=== PATIENT | male | born 1985 | race Caucasian/White ===

== ENCOUNTER 2018-05-04 07:26 | Emergency (ER) | payer OTHER, SELFPAY ==
[2018-05-04 07:28] VITALS: BP 125/82; PULSE 106; RESP 17; TEMP 36.5; O2SAT 98; BMI 27.6
[2018-05-04 08:03] VITALS: O2SAT 99
--- NOTE | 2018-05-04 08:37 | RAD_ITS ---
STUDY: X-RAY CHEST REASON FOR EXAM: Male, 32 years old. Cough and shortness of breath. TECHNIQUE: PA and lateral views of the chest. COMPARISON: None. FINDINGS: Mild degree of increased interstitial markings in the right middle lobe and lingular segment of the left upper lobe. This may represent a viral type of pneumonia. Radiographic follow-up is recommended. There is no demonstrated pleural abnormality. Normal size heart. Normal mediastinum and dao. Normal visualized pulmonary arteries. Normal visualized aortic arch and descending thoracic aorta. Normal visualized thoracic spine. Normal visualized ribs, clavicles, and shoulders. There is no demonstrated abnormality of the visualized soft tissue structures of the upper abdomen. RAD/Chest PA and Lateral IMPRESSION: Mild degree of increased interstitial markings in the right middle lobe and lingular segment of the left upper lobe. Radiographic follow-up is recommended. Electronically Signed: Kemal Hopkins MD at 9:22 EDT Tel [phone], Service support ,
--- NOTE | 2018-05-04 08:39 | ED.VIS.GEN ---
History of Present Illness Chief Complaint: Cold Sx Informant: Patient Onset: Days - 3- Context: Gradual Onset Timing: Continuous Quality: [employer] cough, bronchospasm Location: chest Current Severity: Severe Maximum Severity: Severe Worsened by: coughing. lying down supine. Relieved by: nothing but hasn't tried any medications Associated Symptoms: sob when coughing. sweats at night sometimes. sore throat. hoarseness. Narrative: Few days of cold symptoms. Cough is nonproductive. He went to urgent care yesterday and had a negative strep test, they ordered outpatient multiple labs including Monospot, and a chest x-ray. He has not gotten any of that yet. Past Medical History - Allergies and Home Meds Allergies/Adverse Reactions: Allergies amoxicillin Allergy (Verified 05/04/18 07:28) Unknown Primary Care Physician: Care Physician,No Primary [Primary Care Provider] - Lives: Spouse/ Significant Other Smoking Status: Never smoker Review of Systems All systems negative except as indicated General: Reports: Malaise, Sweats. Denies: Chills, Fever Eyes: Denies: Visual changes - bilaterally ENT: Denies: Bilateral ear pain Cardiovascular: Reports: Chest pain - sore from coughing Respiratory: Reports: Dyspnea, Cough. Denies: Sputum, Orthopnea Gastrointestinal: Denies: Abdominal pain, Nausea, Vomiting, Diarrhea Musculoskeletal: Denies: Myalgias, Neck pain, Back pain Skin: Denies: Rash Neurological: Reports: Headache - w/ coughing Physical Exam Vital Signs/Narrative: Vital Signs Temp Pulse Resp BP Pulse Ox 05/04/18 07:28 97.7 F L 106 H 17 125/82 H 98 Inital Vital Signs reviewed: Yes General: Well nourished, Well developed Head: Normocephalic, Atraumatic Eyes: Perrl, EOMI ENT: Moist mucous membranes, No rhinorrhea, TM's clear, - - Posterior oropharynx clear. Hoarse of voice. No stridor.. Negative for: Nasal congestion, Sinus tenderness Neck: Supple, Nontender, No lymphadenopathy, No JVD Cardiovascular: Regular rate, Regular rhythm, No murmurs, Tachycardia - Mild Respiratory: No distress, CTA bilaterally, Chest tenderness - Mild diffusely Abdomen: Soft, Nontender, Nondistended, Normal bowel sounds Skin: Normal color, No rash Neurological: Alert, Oriented x3, Cranial nerves II-XII grossly intact, Normal Strength, Normal Sensation Psychological: Normal affect Diagnostic/Tx/Re-eval Clinical Impression(s) from Imaging Studies Chest X-Ray 05/04/18 08:37 IMPRESSION: Mild degree of increased interstitial markings in the right middle lobe and lingular segment of the left upper lobe. Radiographic follow-up is recommended. Electronically Signed: Kemal Hopkins MD at 9:22 EDT Tel [phone], Service support , - Medical Decision Making Pt is tachycardic, so although lungs are clear, CXR performed. X-ray shows increased interstitial markings, it is possible this is a mycoplasma infection. Will place him on broad-spectrum antibiotics and something for his cough. Advised close outpatient follow-up if not improving. He is comfortable with this plan. We also discussed the outpatient blood work that was ordered. It is up to him if he wants to continue to get it, but I do not think any of it including a Monospot is indicated or necessary at this time. ED Disposition - Plan for ED Patient: Disposition: Home or Assisted Living Chief Complaint: Cold Sx Diagnosis: Atypical pneumonia Instructions: Walking Pneumonia Prescriptions: Guaifenesin/Codeine [Robitussin AC] 5 - 10 ml PO Q6H PRN PRN 3 Days #4 oz PRN Reason: Cough Azithromycin [Zithromax Z-Sunil] 250 mg PO UD #1 box Referrals: Doctor,Your [STAFF PHYSICIAN] - Haley Medina [NON-STAFF] - 1 Week if not improving (If you do not have a primary care doctor)
[2018-05-04] MEDS: Albuterol 2.5 MG/3 ML VIAL.NEB. INHALATION (08:54)
[2018-05-04 08:56] VITALS: PULSE 109; RESP 24; O2SAT 97
[2018-05-04] MEDS: guaiFENesin Dm 10 ML UDC PO (09:04)
[2018-05-04 10:05] VITALS: BP 104/67; PULSE 81; RESP 16; O2SAT 97
--- NOTE | 2018-05-04 17:24 | ED.DCSUM_ITS ---
History of Present Illness Chief Complaint: Cold Sx Informant: Patient Onset: Days - 3- Context: Gradual Onset Timing: Continuous Quality: [employer] cough, bronchospasm Location: chest Current Severity: Severe Maximum Severity: Severe Worsened by: coughing. lying down supine. Relieved by: nothing but hasn't tried any medications Associated Symptoms: sob when coughing. sweats at night sometimes. sore throat. hoarseness. Narrative: Few days of cold symptoms. Cough is nonproductive. He went to urgent care yesterday and had a negative strep test, they ordered outpatient multiple labs including Monospot, and a chest x-ray. He has not gotten any of that yet. Past Medical History - Allergies and Home Meds Allergies/Adverse Reactions: Allergies amoxicillin Allergy (Verified 05/04/18 07:28) Unknown Primary Care Physician: Care Physician,No Primary [Primary Care Provider] - Lives: Spouse/ Significant Other Smoking Status: Never smoker Review of Systems All systems negative except as indicated General: Reports: Malaise, Sweats. Denies: Chills, Fever Eyes: Denies: Visual changes - bilaterally ENT: Denies: Bilateral ear pain Cardiovascular: Reports: Chest pain - sore from coughing Respiratory: Reports: Dyspnea, Cough. Denies: Sputum, Orthopnea Gastrointestinal: Denies: Abdominal pain, Nausea, Vomiting, Diarrhea Musculoskeletal: Denies: Myalgias, Neck pain, Back pain Skin: Denies: Rash Neurological: Reports: Headache - w/ coughing Physical Exam Vital Signs/Narrative: Vital Signs Temp Pulse Resp BP Pulse Ox 05/04/18 07:28 97.7 F L 106 H 17 125/82 H 98 Inital Vital Signs reviewed: Yes General: Well nourished, Well developed Head: Normocephalic, Atraumatic Eyes: Perrl, EOMI ENT: Moist mucous membranes, No rhinorrhea, TM's clear, - - Posterior oropharynx clear. Hoarse of voice. No stridor.. Negative for: Nasal congestion, Sinus tenderness Neck: Supple, Nontender, No lymphadenopathy, No JVD Cardiovascular: Regular rate, Regular rhythm, No murmurs, Tachycardia - Mild Respiratory: No distress, CTA bilaterally, Chest tenderness - Mild diffusely Abdomen: Soft, Nontender, Nondistended, Normal bowel sounds Skin: Normal color, No rash Neurological: Alert, Oriented x3, Cranial nerves II-XII grossly intact, Normal Strength, Normal Sensation Psychological: Normal affect Diagnostic/Tx/Re-eval Clinical Impression(s) from Imaging Studies Chest X-Ray 05/04/18 08:37 IMPRESSION: Mild degree of increased interstitial markings in the right middle lobe and lingular segment of the left upper lobe. Radiographic follow-up is recommended. Electronically Signed: Kemal Hopkins MD at 9:22 EDT Tel [phone], Service support , - Medical Decision Making Pt is tachycardic, so although lungs are clear, CXR performed. X-ray shows increased interstitial markings, it is possible this is a mycoplasma infection. Will place him on broad-spectrum antibiotics and something for his cough. Advised close outpatient follow-up if not improving. He is comfortable with this plan. We also discussed the outpatient blood work that was ordered. It is up to him if he wants to continue to get it, but I do not think any of it including a Monospot is indicated or necessary at this time. ED Disposition - Plan for ED Patient: Disposition: Home or Assisted Living Chief Complaint: Cold Sx Diagnosis: Atypical pneumonia Instructions: Walking Pneumonia Prescriptions: Guaifenesin/Codeine [Robitussin AC] 5 - 10 ml PO Q6H PRN PRN 3 Days #4 oz PRN Reason: Cough Azithromycin [Zithromax Z-Sunil] 250 mg PO UD #1 box Referrals: Doctor,Your [STAFF PHYSICIAN] - Haley Medina [NON-STAFF] - 1 Week if not improving (If you do not have a primary care doctor)
== END 2018-05-04 10:05 | disposition home or self-care (01) ==
PROVIDERS: Emergency Provider Emergency Medicine
DX: J18.9 Pneumonia, unspecified organism (principal)
CPT/HCPCS: 71046; 94640; 99283